=== PATIENT | female | born 1965 | race Two or more races ===

== ENCOUNTER 2019-03-27 18:01 | Emergency (ER) | payer MEDICAID ==
[~2019-03-27] VITALS: Ht 165.1 cm; Wt 68.0 kg
[2019-03-27] MEDS ORDERED: ONDANSETRON 4 MG/2 ML VIAL IV ONE (18:15)
[2019-03-27] MEDS ORDERED: IV NORMAL SALINE 1000 ML BAG IV ONE (18:15)
[2019-03-27] MEDS ORDERED: LOSA50TA39 PO (18:15)
--- NOTE | 2019-03-27 18:18 | NUR ---
PT A/OX4, BIB FRIEND (WHO IS TRANSLATING), C/O PALPITATIONS, C/P, DIZZINESS, N/V X 3 SINCE 1600 TODAY. 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 PT DENIES SOB, DIZZINESS, HEADACHE.
[2019-03-27 18:25] LABS: BASOPHILS # (AUTO) 0.1 K/uL (0.0-8.0); BASOPHILS % (AUTO) 0.9 % (0.0-2.0); EOSINOPHILS # (AUTO) 0.2 K/uL (0.0-0.7); HEMATOCRIT 38.4 % (31.2-41.9); HEMOGLOBIN 12.5 g/dL (10.9-14.3); LYMPHOCYTES # (AUTO) 2.1 K/uL (20.0-40.0); LYMPHOCYTES % (AUTO) 32.6 % (20.5-51.5); MEAN CORPUSCULAR HEMOGLOBIN 29.5 uug (24.7-32.8); MEAN CORPUSCULAR HGB CONC 33 g/dL (32.3-35.6); MEAN CORPUSCULAR VOLUME 90.2 fL (75.5-95.3); MONOCYTES # (AUTO) 0.4 K/uL (2.0-10.0); NEUTROPHILS # (AUTO) 3.8 K/uL (1.8-8.9); NEUTROPHILS % (AUTO) 57.5 % (38.5-71.5); PLATELET COUNT (AUTO) 209 K/uL (179-408); RED BLOOD CELL COUNT(AUTO) 4.25 MIL/uL (3.63-4.92); WHITE BLOOD COUNT (AUTO) 6.6 K/uL (3.8-11.8)
[2019-03-27] MEDS ORDERED: ONDANSETRON 4 MG/2 ML VIAL ONE (18:25)
[2019-03-27 18:42] LABS: CREATININE 0.8 mg/dL (0.6-1.3); POTASSIUM 4.1 mmol/L (3.5-5.1)
[2019-03-27] MEDS ORDERED: PROCHLORPERAZINE EDISYLATE 10 MG/2 ML VIAL ONE (18:45)
[2019-03-27] MEDS ORDERED: PROCHLORPERAZINE EDISYLATE 10 MG/2 ML VIAL IV ONE (18:45)
[2019-03-27 18:52] LABS: *URINE HCG, QUAL NEGATIVE (NEGATIVE)
--- NOTE | 2019-03-27 18:54 | NUR ---
PT TAKEN TO RADIOLOGY FOR CT SCAN.
[2019-03-27 18:55] LABS: BILIRUBIN,DIRECT 0.1 mg/dL (0.0-0.2); BILIRUBIN,TOTAL 0.2 mg/dL (0.2-1.0); TOTAL PROTEIN, SERUM 7.4 g/dL (6.4-8.2)
--- NOTE | 2019-03-27 19:03 | NUR ---
SHIFT REPORT GIVEN TO ARUNA Brian RN.
--- NOTE | 2019-03-27 19:30 | NUR ---
PT BACK FROM RADIOLOGY DEPT OVERALL APPEARANCES FAIR DENIES PAIN/DISCOMFORT DAUGHTER AT HER SIDE
--- NOTE | 2019-03-27 20:16 | NUR ---
EPIC panel call requested. Awaiting call back from Dilan Suárez.
[2019-03-27] MEDS ORDERED: ASPIRIN 81 MG TAB.CHEW PO ONE (20:30)
[2019-03-27] MEDS ORDERED: NITROGLYCERIN OINT 1 GM PACKET TP ONE ×2 (20:30→20:35)
--- NOTE | 2019-03-27 20:30 | NUR ---
PT IS BEING ADMITTED TO HOSPITAL FOR CP PT AND HER DAUGHTER INFORMED TEACHING GIVEN PT CONT TO BE PAINFREE AND SR ON THE MONITOR
[2019-03-27] MEDS ORDERED: ASPIRIN 81 MG TAB.CHEW ONE ×2 (20:34→20:36)
[2019-03-27] MEDS ORDERED: METOPROLOL SUCCINATE XL 25 MG TAB.SR.24H PO ONE (20:45)
--- NOTE | 2019-03-27 20:45 | NUR ---
REPORT WAS BEING CALLED TO MONAE CONROY AND THE PT DECIDED SHE WANTS TO GO HOME AWARE, PT CONDITION REMAINS STABLE WITHOUT INCIDENT
[2019-03-27 21:11] VITALS: BP 160/72
[2019-03-27] MEDS ORDERED: METOPROLOL TARTRATE 50 MG TABLET ONE (21:11)
--- NOTE | 2019-03-27 21:22 | NUR ---
Patient does not wish to proceed with medical care recommended by (NEHEMIAS ). Patient given information related to possible complications, up to and including , which could occur as a result of leaving the hospital at this time. Patient verbalizes understanding of risks involved due to leaving against medical advice. Patient has signed AMA form.
== END 2019-03-27 21:22 | disposition left against medical advice (07) ==
LOC: ER 18:03
DX: R07.9 Chest pain, unspecified (principal); R00.2 Palpitations; R42 Dizziness and giddiness; R11.2 Nausea with vomiting, unspecified; Z79.899 Other long term (current) drug therapy
CPT/HCPCS: 36415; 70450; 71045; 80048; 80076; 83880; 84443; 84484; 84703; 85025; 85379; 93005; 96361; 96374; 96375; 99284; J0780; J2405; 70030-TC; A4663; J7030

== ENCOUNTER 2021-03-22 16:36 | Emergency (ER) | payer MEDICAID ==
[~2021-03-22] VITALS: Ht 162.6 cm; Wt 65.8 kg
[~2021-03-22 16:36] MED LIST: LOSA50TA39 PO
--- NOTE | 2021-03-22 16:43 | NUR ---
Pt is in room #1a. Dr Shrestha evaluated the pt.
[2021-03-22] MEDS ORDERED: ASPI81TA31 PO (16:49)
[2021-03-22] MEDS ORDERED: CAPT25TA3 PO (16:49)
[2021-03-22 17:15] LABS: BASOPHILS % (AUTO) 0.7 % (0.0-2.0); EOSINOPHILS # (AUTO) 0.1 K/uL (0.0-0.7); HEMATOCRIT 39.1 % (31.2-41.9); HEMOGLOBIN 13.1 g/dL (10.9-14.3); LYMPHOCYTES # (AUTO) 2.2 K/uL (20.0-40.0); LYMPHOCYTES % (AUTO) 35.2 % (20.5-51.5); MEAN CORPUSCULAR HEMOGLOBIN 30.5 uug (24.7-32.8); MEAN CORPUSCULAR HGB CONC 34 g/dL (32.3-35.6); MONOCYTES # (AUTO) 0.3 K/uL (2.0-10.0); NEUTROPHILS # (AUTO) 3.6 K/uL (1.8-8.9); NEUTROPHILS % (AUTO) 57.1 % (38.5-71.5); PLATELET COUNT (AUTO) 216 K/uL (179-408); RED BLOOD CELL COUNT(AUTO) 4.29 MIL/uL (3.63-4.92); WHITE BLOOD COUNT (AUTO) 6.4 K/uL (3.8-11.8)
[2021-03-22 17:21] LABS: CREATININE 0.7 mg/dL (0.6-1.3); POTASSIUM 3.7 mmol/L (3.5-5.1)
[2021-03-22] MEDS ORDERED: KETOROLAC TROMETHAMINE 15 MG INJ IVP ONE (17:45)
[2021-03-22] MEDS ORDERED: LORAZEPAM 0.5 MG TABLET PO ONE (17:45)
[2021-03-22] MEDS ORDERED: KETOROLAC TROMETHAMINE 15 MG INJ ONE (17:51)
[2021-03-22] MEDS ORDERED: LORAZEPAM 0.5 MG TABLET ONE (17:52)
--- NOTE | 2021-03-22 19:01 | NUR ---
PT WAS D/C'd TO HOME AFTER ERMD RE-EVALUATION. D/C INSTRUCTIONS GIVEN TO THE PT BY DR COLON. PT DENIES PAIN. NO S/S OF DISTRESS AT THE TIME OF DISCHARGE.
[2021-03-22 19:02] VITALS: BP 129/76
== END 2021-03-22 19:03 | disposition home or self-care (01) ==
LOC: ER 16:38
DX: R07.9 Chest pain, unspecified (principal); F41.9 Anxiety disorder, unspecified; Z79.82 Long term (current) use of aspirin; Z79.899 Other long term (current) drug therapy; J98.11 Atelectasis; I10 Essential (primary) hypertension
CPT/HCPCS: 36415; 71045; 80048; 84484; 85025; 93005; 96374; 99285; J1885; 70030-TC; A4663; J7030